=== PATIENT | female | born 1985 | race Caucasian/White ===

== ENCOUNTER 2016-10-17 08:39 | Emergency (ER) | payer SELFPAY ==
--- NOTE | 2016-10-17 09:23 | ERPHSYRPT ---
- History of Present Illness Time Seen by Provider: 10/17/16 09:18 Historian: patient Exam Limitations: no limitations Patient Subjective Stated Complaint: PT REPORTS LOW ABD PAIN BEGINNING THIS AM- VOMITING X 3-BURNING ET INCREASED URINATION-DENIES FEVER Triage Nursing Assessment: PT PINK WARM ET [id number] EASY ET NONLABORED- ABD SOFT ET NONTENDER TO PALP Physician History: The patient is a 30-year-old female who complains of lower abdominal pain that began this morning. She also complains of urinary frequency and burning that began this morning. She has vomited 3 times this morning. She has chills. Her past medical history is significant only for tonsillectomy and a tubal ligation. Timing/Duration: today Activities at Onset: none Quality: sharpness Abdominal Pain Onset Location: RLQ, LLQ, suprapubic Pain Radiation: back Severity of Pain-Max: moderate Severity of Pain-Current: moderate Modifying Factors: Improves With: urinating, vomiting Associated Symptoms: back, vomiting Previous symptoms: no prior history Allergies/Adverse Reactions: No Known Drug Allergies Allergy (Unverified 10/17/16 08:59) Home Medications: No Home Meds 1 ea UD 10/17/16 [History] Hx Tetanus, Diphtheria Vaccination/Date Given: Yes Hx Influenza Vaccination/Date Given: Yes Hx Pneumococcal Vaccination/Date Given: No Immunizations Up to Date: Yes - Review of Systems Constitutional: Chills Eyes: No Symptoms Ears, Nose, & Throat: No Symptoms Respiratory: No Cough, No Dyspnea Cardiac: No Chest Pain, No Edema, No Syncope Abdominal/Gastrointestinal: Vomiting Genitourinary Symptoms: Dysuria, Frequency Musculoskeletal: Back Pain Skin: No Rash Neurological: No Dizziness, No Focal Weakness, No Sensory Changes Psychological: No Symptoms Endocrine: No Symptoms Hematologic/Lymphatic: No Symptoms Immunological/Allergic: No Symptoms All Other Systems: Reviewed and Negative - Past Medical History Pertinent Past Medical History: No - Past Surgical History Past Surgical History: Yes Female Surgical History: Tubal Ligation - Social History Smoking Status: Current every day smoker How long have you smoked: YRS Exposure to second hand smoke: No Drug Use: none Patient Lives Alone: No - Female History Hx Last Menstrual Period: 2 WKS AGO - Nursing Vital Signs Nursing Vital Signs: Initial Vital Signs Temperature 97.9 F Temperature Source Oral Pulse Rate 76 Respiratory Rate 18 Blood Pressure [] 110/67 Pain Intensity 4 - Physical Exam General Appearance: mild distress Eye Exam: PERRL/EOMI, eyes nml inspection Ears, Nose, Throat Exam: normal ENT inspection, pharynx normal, moist mucous membranes Neck Exam: normal inspection, non-tender, supple, full range of motion Respiratory Exam: wheezing Cardiovascular Exam: regular rate/rhythm, normal heart sounds Gastrointestinal/Abdomen Exam: soft, tenderness (RLQ, suprapubic), No mass, No guarding Pelvic Exam: not done Rectal Exam: not done Back Exam: normal inspection, normal range of motion, No CVA tenderness, No vertebral tenderness Extremity Exam: normal inspection, normal range of motion, pelvis stable Neurologic Exam: alert, oriented x 3, cooperative, normal mood/affect, nml cerebellar function, sensation nml, No motor deficits Skin Exam: normal color, warm, dry SpO2 Interpretation: normal SpO2: 99 Oxygen Delivery: Room Air - Radiology Exams Abdomen X-ray Interpretation: Interpreted by me, Negative (neg chest, nonobstructed abd) Ordered Tests: Active Orders 24 hr Category Date Time Status IV Insertion STAT Care 10/17/16 09:26 Active OBSTR/ACUTE ABDOMEN SERIES Stat Exams 10/17/16 09:27 Taken CBC W DIFF Stat Lab 10/17/16 09:10 Completed CMP Stat Lab 10/17/16 09:10 Completed CULTURE,URINE Stat Lab 10/17/16 09:10 Received HCG QUALITATIVE,SERUM Stat Lab 10/17/16 09:10 Completed Manual Differential NC Stat Lab 10/17/16 09:10 Completed UA W/ MICROSCOPIC Stat Lab 10/17/16 09:10 Completed Medication Summary Discontinued Medications Generic Name Dose Route Start Last Admin Trade Name Tom PRN Reason Stop Dose Admin Sodium Chloride 1,000 mls @ 999 mls/hr 10/17/16 09:26 10/17/16 09:37 Sodium Chloride 0.9% 1000 Ml IV 10/17/16 10:26 999 mls/hr .Q1H1M STA Administration Sodium Chloride Confirm 10/17/16 09:32 Sodium Chloride 0.9% 1000 Ml Administered 10/17/16 09:33 Dose 1,000 mls @ ud .ROUTE .STK-MED ONE Ceftriaxone Sodium/Dextrose 1 g in 50 mls @ 100 mls/hr 10/17/16 09:54 10:01 Rocephin 1 Gm-D5w 50 Ml Bag IV 10/17/16 10:23 100 mls/hr STAT ONE Administration Ceftriaxone Sodium/Dextrose Confirm 10/17/16 09:56 Rocephin 1 Gm-D5w 50 Ml Bag Administered 10/17/16 09:57 Dose 1 g in 50 mls @ ud IV .STK-MED ONE Ketorolac Tromethamine 30 mg 10/17/16 09:26 10/17/16 09:37 Toradol 30 Mg Injection IV 10/17/16 09:27 30 mg STAT ONE Administration Ketorolac Tromethamine Confirm 10/17/16 09:32 Toradol 30 Mg Injection Administered 10/17/16 09:33 Dose 30 mg .ROUTE .STK-MED ONE Ondansetron HCl 4 mg 10/17/16 09:26 10/17/16 09:37 Zofran 4 Mg/2 Ml Vial IV 10/17/16 09:27 4 mg STAT ONE Administration Ondansetron HCl Confirm 10/17/16 09:32 Zofran 4 Mg/2 Ml Vial Administered 10/17/16 09:33 Dose 4 mg .ROUTE .STK-MED ONE Potassium Chloride 20 meq 10/17/16 10:20 10/17/16 10:24 Klor Con 10 Meq PO 10/17/16 10:21 20 meq STAT ONE Administration Potassium Chloride Confirm 10/17/16 10:23 Klor Con 10 Meq Administered 10/17/16 10:24 Dose 20 meq PO .STK-MED ONE Lab/Rad Data: Laboratory Result Diagrams 10/17/16 09:10 10/17/16 09:10 Laboratory Results 10/17/16 10/17/16 10/17/16 Range/Units 09:10 09:10 09:10 WBC 5.3 (4.0-10.5) K/mm3 RBC 4.02 L (4.1-5.4) M/mm3 Hgb 13.0 (12.0-16.0) gm/dl Hct 38.8 (35-47) % MCV 96.5 (78-100) fl MCH 32.3 H (26-32) pg MCHC 33.5 (32-36) g/dl RDW 11.9 (11.5-14.0) % Plt Count 174 (150-450) K/mm3 MPV 12.4 H (6-9.5) fl Segmented Neutrophils 60 (36.0-66.0) % Lymphocytes (Manual) 32 (24-44) % Monocytes (Manual) 7 (0.0-12.0) % Eosinophils (Manual) 1 (0.00-3.0) % Differential Comment NORMAL Platelet Estimate NORMAL (NORMAL) Sodium 140 (136-145) mEq/L Potassium 3.3 L (3.5-5.1) mEq/L Chloride 103 (98-107) mEq/L Carbon Dioxide 25.4 (21-32) mEq/L Anion Gap 15.0 (5-15) MEQ/L BUN 4 L (9-20) mg/dL Creatinine 0.81 (0.55-1.30) mg/dl Estimated GFR > 60 ML/MIN Glucose 101 (70-110) MG/DL Calcium 9.4 (8.5-10.1) mg/dL Total Bilirubin 0.50 (0.2-1.0) mg/dL AST 13 L (15-37) U/L ALT 11 L (12-78) U/L Alkaline Phosphatase 50 (46-116) U/L Serum Total Protein 8.1 (6.4-8.2) gm/dL Albumin 4.2 (3.4-5.0) g/dL Serum , Qual NEGATIVE (Negative) Ur Collection Type Urine Color (YELLOW) Urine Appearance (CLEAR) Urine pH (5-6) Ur Specific [place] (1.005-1.025) Urine Protein (Negative) Urine Glucose (UA) (NEGATIVE) mg/dL Urine Ketones (NEGATIVE) Urine Nitrite (NEGATIVE) Urine Bilirubin (NEGATIVE) Urine Urobilinogen (0-1) mg/dL Urine WBC (Auto) (NEGATIVE) Urine RBC (Auto) (0-5) Vikas/ul Urine Microscopic RBC (0-2) /HPF Urine Microscopic WBC (0-5) /HPF Ur Epithelial Cells (FEW) /HPF Urine Bacteria (NEGATIVE) /HPF Specimen Received 10/17/16 Range/Units 09:10 WBC (4.0-10.5) K/mm3 RBC (4.1-5.4) M/mm3 Hgb (12.0-16.0) gm/dl Hct (35-47) % MCV (78-100) fl MCH (26-32) pg MCHC (32-36) g/dl RDW (11.5-14.0) % Plt Count (150-450) K/mm3 MPV (6-9.5) fl Segmented Neutrophils (36.0-66.0) % Lymphocytes (Manual) (24-44) % Monocytes (Manual) (0.0-12.0) % Eosinophils (Manual) (0.00-3.0) % Differential Comment Platelet Estimate (NORMAL) Sodium (136-145) mEq/L Potassium (3.5-5.1) mEq/L Chloride (98-107) mEq/L Carbon Dioxide (21-32) mEq/L Anion Gap (5-15) MEQ/L BUN (9-20) mg/dL Creatinine (0.55-1.30) mg/dl Estimated GFR ML/MIN Glucose (70-110) MG/DL Calcium (8.5-10.1) mg/dL Total Bilirubin (0.2-1.0) mg/dL AST (15-37) U/L ALT (12-78) U/L Alkaline Phosphatase (46-116) U/L Serum Total Protein (6.4-8.2) gm/dL Albumin (3.4-5.0) g/dL Serum , Qual (Negative) Ur Collection Type CLEAN CATCH Urine Color PINK (YELLOW) Urine Appearance CLEAR (CLEAR) Urine pH 6.0 (5-6) Ur Specific [place] <=1.005 (1.005-1.025) Urine Protein 30 (Negative) Urine Glucose (UA) NEGATIVE (NEGATIVE) mg/dL Urine Ketones NEGATIVE (NEGATIVE) Urine Nitrite NEGATIVE (NEGATIVE) Urine Bilirubin NEGATIVE (NEGATIVE) Urine Urobilinogen 0.2 (0-1) mg/dL Urine WBC (Auto) MODERATE (NEGATIVE) Urine RBC (Auto) LARGE (0-5) Vkias/ul Urine Microscopic RBC 25-50 (0-2) /HPF Urine Microscopic WBC 50-100 (0-5) /HPF Ur Epithelial Cells MODERATE (FEW) /HPF Urine Bacteria MODERATE (NEGATIVE) /HPF Specimen Received [id number] - Progress Progress: improved Counseled pt/family regarding: lab results, diagnosis, need for follow-up, rad results - Departure Time of Disposition: 10:32 Departure Disposition: Home Clinical Impression: UTI (urinary tract infection), Vomiting, Hypokalemia Condition: Stable Critical Care Time: No Additional Instructions: You have a urinary tract infection. You also were vomiting this morning which caused your potassium level to be slightly low. You were given 1 L of IV fluids , Zofran 4 mg by IV, and potassium 20 mEq in the ER. You were also given Rocephin 1 g by IV. You were given prescriptions for cephalexin 500 mg 3 times a day for 5 days, Zofran ODT 4 mg every 6 hours as needed, and Pyridium 200 mg 3 times a day as needed for bladder pain. Stay well hydrated. Follow-up with your primary care doctor next week. Prescriptions: Ondansetron [Zofran Odt] 4 mg PO Q6HPRN PRN #10 tab.rapdis PRN Reason: Nausea/Vomiting Cephalexin Monohydrate [Cephalexin] 500 mg PO TID #15 tablet Phenazopyridine HCl 200 mg [Pyridium 200 mg] 1 tab PO TID #5 tablet
[2016-10-17] MEDS ORDERED: Zofran 4 MG/2 ML VIAL IV ONE (09:26)
[2016-10-17] MEDS ORDERED: Sodium Chloride 0.9% 1000 ML 1,000 ML IV STA (09:26)
[2016-10-17] MEDS ORDERED: TORAdol 30 mg Injection IV ONE (09:26)
[2016-10-17] MEDS ORDERED: Sodium Chloride 0.9% 1000 ML 1,000 ML ONE (09:32)
[2016-10-17] MEDS ORDERED: TORAdol 30 mg Injection ONE (09:32)
[2016-10-17] MEDS ORDERED: Zofran 4 MG/2 ML VIAL ONE (09:32)
[2016-10-17 09:43] LABS: Collection Type CLEAN CATCH
[2016-10-17 09:44] LABS: COMPLETE URINE MICROSCOPIC? YES
[2016-10-17 09:47] LABS: Mean Cell Volume 96.5 fl (78-100); Mean Corpuscular Hemoglobin 32.3 pg (26-32); Mean Platelet Volume 12.4 fl (6-9.5); Platelet Count 174 K/mm3 (150-450); Red Blood Count 4.02 M/mm3 (4.1-5.4); Red Cell Distribution Width 11.9 % (11.5-14.0); White Blood Count 5.3 K/mm3 (4.0-10.5)
[2016-10-17 09:48] LABS: ADD URINE CULTURE? YES (NO); Bacteria MODERATE /HPF (NEGATIVE); Epithelial Cells MODERATE /HPF (FEW); WBC 50-100 /HPF (0-5)
[2016-10-17] MEDS ORDERED: ROCEPHIN 1 Gm-D5w 50 ml Bag** 1 G/50 ML IVPB IV ONE ×2 (09:54→09:56)
[2016-10-17 10:05] LABS: ALBUMIN 4.2 g/dL (3.4-5.0); ALKALINE PHOSPHATASE 50 U/L (46-116); BLOOD UREA NITROGEN 4 mg/dL (9-20); CHLORIDE 103 mEq/L (98-107); Carbon Dioxide 25.4 mEq/L (21-32); Glucose 101 MG/DL (70-110); Potassium 3.3 mEq/L (3.5-5.1); SGOT/AST 13 U/L (15-37); SGPT/ALT 11 U/L (12-78); SODIUM 140 mEq/L (136-145); Total Protein 8.1 gm/dL (6.4-8.2)
[2016-10-17 10:10] LABS: Eosinophil 1 % (0.00-3.0); Platelet Estimate NORMAL (NORMAL); Total Cells Counted 100
[2016-10-17] MEDS ORDERED: Klor Con 10 MEQ PO ONE ×2 (10:20→10:23)
[2016-10-17 10:52] VITALS: BP 116/69; PULSE 80; O2SAT 97
--- NOTE | 2016-10-17 22:31 | XRAY ---
Indication: Abdominal pain. Vomiting. Comparison: None 2 views of the abdomen nonacute and nonobstructed. Bilateral tubal ligation clips. Solid organs and osseous structures unremarkable. Single PA chest demonstrates normal heart, lungs, and bony thorax. Impression: Negative abdomen. Normal 1 view chest.
== END 2016-10-17 10:51 | disposition home or self-care (01) ==
LOC: ED 08:39
DX: N39.0 Urinary tract infection, site not specified (principal); R11.10 Vomiting, unspecified; E87.6 Hypokalemia
CPT/HCPCS: 36000; 36415; 74022; 80053; 81000; 84703; 85025; 87086; 96360; 96365; 96374; 96375; 99284; J0696; J1885; J2405; A9270-GY